=== PATIENT | female | born 1945 | race Caucasian/White ===

== ENCOUNTER 2021-10-20 08:12 | Emergency (ER) | payer MEDICARE, OTHER, SELFPAY ==
[2021-10-20 08:13] VITALS: BP 175/85; PULSE 86; RESP 16; TEMP 36.7; O2SAT 98; BMI 29.7
--- NOTE | 2021-10-20 08:20 | EKG12_ITS ---
Test Reason : CP Blood Pressure : / mmHG Vent. Rate : 082 BPM Atrial Rate : 082 BPM P-R Int : 160 ms QRS Dur : 074 ms QT Int : 392 ms P-R-T Axes : 041 019 070 degrees QTc Int : 457 ms Sinus rhythm with marked sinus arrhythmia Nonspecific ST abnormality Abnormal ECG Confirmed by LUDMILA LEMOS, CORA ([id number]), editor at large JEROME BOLDEN ([id number]) on 10/25/2021 7:32:34 AM Referred By: EMEKA Confirmed By:CORA KEYS MD
--- NOTE | 2021-10-20 08:25 | RAD_ITS ---
STUDY: X-RAY CHEST REASON FOR EXAM: Female, 76 years old. Chest pain TECHNIQUE: Single AP portable view of the chest. COMPARISON: None. FINDINGS: EKG electrodes are seen. Surgical clips are seen in the right axillary region. There is hyperinflation of the lungs consistent with chronic obstructive lung disease (COPD). There is no demonstrated pleural abnormality. Normal size heart. Normal mediastinum and rafat. Normal visualized pulmonary arteries. Normal visualized aortic arch and descending thoracic aorta. Normal visualized thoracic spine. Normal visualized ribs, clavicles, and shoulders. There is no demonstrated abnormality of the visualized soft tissue structures of the upper abdomen. RAD/Chest 1 View (Portable) IMPRESSION: Hyperinflation. No acute abnormality is seen. Electronically Signed: Michael Lehman MD at 8:43 EDT ,
[2021-10-20 08:27] LABS: Absolute Lymphocyte Count 2.68 X10^3/uL (0.83-4.51); Absolute Neutrophil Count 4.8 X10^3/uL (2.0-7.7); Basophil# 0.03 X10^3/uL; Basophil% 0.4 % (0-1); Hematocrit 39.7 % (37-47); Hemoglobin 12.9 g/dL (12.0-15.0); Lymphocyte # 2.68 X10^3/ul (0.83-4.51); Lymphocyte % 32.4 % (19-41); Mean Corp Hgb Conc 32.5 g/dL (32-36); Mean Corpuscular Hgb 28.8 pg (27.0-32.0); Mean Corpuscular Volume 88.6 fL (81-99); Mean Platelet Vol. 10.4 fl (6.2-12.0); Monocyte# 0.78 X10^3/uL; Monocyte% 9.4 % (0-10); NRBC Flagged by Analyzer 0 % (0-5); Neutrophil # 4.76 X10^3/uL (2.7-7.7); Neutrophil % 57.4 % (47-70); Platelet Count 259 K/mm3 (150-450); RBC Distribution Width CV 13.4 % (11.6-14.6); RBC Distribution Width SD 43.5 fl (35.1-43.9); Red Blood Count 4.48 M/mm3 (4.2-5.4); White Blood Count 8.3 K/mm3 (4.4-11.0)
[2021-10-20 08:33] VITALS: BP 161/77; PULSE 78; RESP 17; O2SAT 99
[2021-10-20] MEDS: Aspirin 81 MG TAB.CHEW 324 MG PO (08:38)
[2021-10-20 08:39] VITALS: BP 161/77; PULSE 74
[2021-10-20] MEDS: Nitroglycerin SL (ED/IMG/CATH) 0.4 MG TABLET SL ×2 (08:39→08:45)
[2021-10-20 08:45] VITALS: BP 157/83; PULSE 86
[2021-10-20 08:52] VITALS: BP 146/71; PULSE 76; RESP 14; O2SAT 97
[2021-10-20 08:52] LABS: Anion Gap 8 (5-15); BUN 9 mg/dL (7-18); BUN/Creat Ratio 11.3 RATIO (10-20); Calcium,Total 8.8 mg/dL (8.5-10.1); Chloride 105 mmol/L (98-107); EST Glomerular Filtration Rate 74 mL/min (>60); Est Glom Filt Rate - Afr Amer 90 mL/min (>60); Estimated Creatinine Clearance 58.18 ml/min; Glucose 104 mg/dL (74-106); Potassium 3.5 mmol/L (3.5-5.1); Sodium Level 141 mmol/L (136-145); Thyroid Stim Hormone (TSH) 3.07 uIU/mL (0.358-3.74); Troponin-I HS (w/2H Reflex) 5 pg/mL (3.0-54.0)
[2021-10-20 09:20] VITALS: BP 137/71; PULSE 70; RESP 17; O2SAT 100
[2021-10-20 09:33] LABS: D-Dimer Quantitative (DVT/PE) 0.65 FEU/ug/m (0.27-0.49)
--- NOTE | 2021-10-20 10:11 | EDS_ITS ---
HPI History of Present Illness Chief Complaint: Chest Pain Informant: patient Narrative Narrative: Patient is a 76-year-old female presenting with chest discomfort. Patient is visiting from [place] and states that this morning when she woke up she developed pain across the center of her upper chest. Describes as an aching sensation. Denies any radiation. States is worse with direct palpation. Denies any associated shortness of breath. Patient states her feet feel slightly swollen. She denies any history of DVT or PE. She notes that her and her drove from [place]. She denies any known history of coronary artery disease but is concerned because she has a family history of coronary artery disease. Denies any other symptoms. No other complaints at this time. CVD Risk Factors: Positive for Hypertension and Family History 1' </=55 PFSH PFS Medical History Anxiety HTN (hypertension) Vertigo Home Medications buspirone 5 mg PO DAILY 10/20/21 [History Last Taken Unknown] hydrochlorothiazide 25 mg PO DAILY 10/20/21 [History Last Taken Unknown] Allergy/AdvReac Type Severity Reaction Status Date / Time adhesive tape Allergy Hives Verified 10/20/21 08:16 Penicillins [PCN] Allergy Hives Verified 10/20/21 08:16 Surgical History History of appendectomy Social History Smoking Status: Never smoker ROS ROS ED Constitutional Constitutional ED: Denies chills or fever(s) Eyes Eyes: Denies change in vision ENT ENT ED: Denies ear pain or sore throat Cardiovascular Cardiovascular: Reports as per HPI and chest pain; Denies palpitations or racing heartbeat Respiratory/Chest Respiratory/Chest: Denies cough, dyspnea or dyspnea on exertion Gastrointestinal Gastrointestinal: Denies abdominal pain, diarrhea or vomiting Genitourinary Genitourinary ED: Denies dysuria Musculoskeletal Musculoskeletal: Denies arthralgias or myalgias Integumentary Denies rash Neurologic Neurologic: Denies headache(s) or weakness Psychiatric Psychiatric: Denies depression EXAM Physical Exam Const Vital Signs: 10/20/21 08:13 10/20/21 08:15 10/20/21 08:30 Temperature 98.1 F Temperature Source Oral Pulse Rate 86 Respiratory Rate 16 Respiratory Effort Normal Non-Labored Blood Pressure 175/85 H Blood Pressure Mean 115 Pulse Ox 98 Oxygen Delivery Method Room Air Room Air 10/20/21 08:33 10/20/21 08:39 10/20/21 08:45 Temperature Temperature Source Pulse Rate 78 74 86 Respiratory Rate 17 Respiratory Effort Blood Pressure 161/77 H 161/77 H 157/83 H Blood Pressure Mean 105 Pulse Ox 99 Oxygen Delivery Method Room Air 10/20/21 08:52 10/20/21 09:20 Temperature Temperature Source Pulse Rate 76 70 Respiratory Rate 14 17 Respiratory Effort Blood Pressure 146/71 H 137/71 H Blood Pressure Mean 96 93 Pulse Ox 97 100 Oxygen Delivery Method Room Air Room Air Positive well nourished and well developed General Appearance ED: well developed and NAD HEENT Reports dry mucous membranes normocephalic and atraumatic Mouth ED: Yes dry mucous membranes Mouth: dry mucous membranes Eyes PERRL and EOMs intact bilaterally Neck supple and no JVD Chest Wall inspection of chest normal Chest: tenderness sternum Resp normal respiratory effort and clear to auscultation bilaterally Effort and Inspection: Negative for respiratory distress Cardio regular rate, regular rhythm and no murmurs GI normal to inspection, nondistended, normoactive bowel sounds, soft to palpation and non-tender Extremity normal to inspection General Extremety ED: Negative for edema or tenderness General Extremity: Negative for edema Neuro oriented x3 Neuro Narrative: No focal deficits Sensorium / Orientation: awake and alert Psych mental status grossly normal Mood & Affect: anxious Skin no rashes or lesions noted and no wounds Heart Score History: Slightly/Non-Suspicious ECG: Nonspecific Repolarization Age: >/= 65 years Risk Factors: 1 or 2 Risk Factors Troponin: </= Normal Limit Score: 4 MDM MDM MDM Narrative Medical decision making narrative: Patient's evaluated for chest discomfort. She appears nontoxic in no acute distress. Initially she is hypertensive with a blood pressure 175/85. Patient is given aspirin and nitroglycerin. No improvement after 2 doses of nitroglycerin however she does develop a headache. Patient's blood pressure does improve to 137/71. EKG does not show any acute ischemic changes. CBC, BMP and delta high since her troponin are unremarkable. Her D-dimers 0.65, below the cutoff for age-adjusted D-dimer. I do not suspect a PE as a cause of her chest pain. I do not think imaging is indicated. TSH is normal. Chest x-ray does not show any acute processes interpreted by myself as well as radiology. The exact cause of her chest discomfort is not clear however I do not think she is suffering from ACS, pulmonary embolism, pneumonia, pneumothorax or other more severe conditions. I think she is stable for outpatient follow-up. She is returning to [place] next week and will follow-up at that time. She is counseled on return precautions. Patient and family verbalized agreement and understanding with this plan. Lab Data Attestation: I reviewed the patient's lab results. Labs: Laboratory Results - last 24 hr 10/20/21 10/20/21 10/20/21 08:15 08:15 08:15 WBC 8.3 RBC 4.48 Hgb 12.9 Hct 39.7 MCV 88.6 MCH 28.8 MCHC 32.5 RDW Std Deviation 43.5 RDW Coeff of Du 13.4 Plt Count 259 MPV 10.4 Immature Gran % (Auto) 0.400 Neut % (Auto) 57.4 Lymph % (Auto) 32.4 [place] % (Auto) 9.4 Eos % (Auto) 0.0 Baso % (Auto) 0.4 Absolute Neuts (auto) 4.8 Absolute Lymphs (auto) 2.68 Nucleated RBC % 0 D-Dimer Quant (PE/DVT) 0.65 H* Sodium 141 Potassium 3.5 Chloride 105 Carbon Dioxide 28.0 Anion Gap 8 BUN 9 Creatinine 0.80 Estim Creat Clear Calc 58.18 Est GFR (MDRD) Af Amer 90 Est GFR (MDRD) Non-Af 74 BUN/Creatinine Ratio 11.3 Glucose 104 Calcium 8.8 Troponin I High Sens 5 TSH 3.07 10/20/21 10:32 WBC RBC Hgb Hct MCV MCH MCHC RDW Std Deviation RDW Coeff of [place]t Count MPV Immature Gran % (Auto) Neut % (Auto) Lymph % (Auto) [place] % (Auto) Eos % (Auto) Baso % (Auto) Absolute Neuts (auto) Absolute Lymphs (auto) Nucleated RBC % D-Dimer Quant (PE/DVT) Sodium Potassium Chloride Carbon Dioxide Anion Gap BUN Creatinine Estim Creat Clear Calc Est GFR (MDRD) Af Amer Est GFR (MDRD) Non-Af BUN/Creatinine Ratio Glucose Calcium Troponin I High Sens 6 TSH Radiography Chest X-Ray - ED: 1 View, Read by ED Physician, Read by Radiologist and No Acute Disease Diagnostic Testing: Clinical Impression(s) from Imaging Studies Chest X-Ray 10/20/21 08:25 IMPRESSION: Hyperinflation. No acute abnormality is seen. Electronically Signed: Michael Lehman MD at 8:43 EDT , Rhythm Strip Rhythm Strip: Sinus Rhythm Rate: 82 Ectopy: None EKG Initial EKG: Attestation: I personally reviewed and interpreted this EKG as follows: Interpretation: Sinus Rhythm Comments: Sinus rhythm with sinus arrhythmia at a rate of 82 Normal intervals Normal axis Normal ST segments Prior: No Prior Discharge Plan Triage Chief Complaint: Chest Pain ED Provider: Katelin Cabrales Dx/Rx/DC Orders Clinical Impression: Chest pain Instructions: ED Chest Pain, Uncertain Cause Prescriptions: No Action buspirone 5 mg Tablet 5 mg PO DAILY RF: 0 hydrochlorothiazide 25 mg Tablet 25 mg PO DAILY RF: 0 Referrals: AMARILYS HAWTHORNE [Other] Activity Restrictions/Additional Instructions: Please follow-up with your primary care doctor when you get back to [place] for further cardiac evaluation. Return the emergency room if you develop worsening symptoms including worsening chest pain or difficulty breathing. Disposition Disposition: Home, Self Care Discharge Date/Time: 10/20/21 11:36
[2021-10-20 10:25] LABS: Reflex Troponin-HS? (from REC) Y
[2021-10-20 10:58] LABS: Troponin-I HS 6 pg/mL (3.0-54.0)
== END 2021-10-20 11:36 | disposition home or self-care (01) ==
PROVIDERS: Emergency Provider Emergency Medicine; Visit Provider Emergency Medicine
DX: R07.9 Chest pain, unspecified (principal); R51.9 Headache, unspecified; I10 Essential (primary) hypertension; Z82.49 Family history of ischemic heart disease and other diseases of the circulatory system
CPT/HCPCS: 71045; 80048; 84443; 84484; 85025; 85379; 93005; 99285; J7030; A4216